=== PATIENT | male | born 1985 | race Two or more races ===

== ENCOUNTER 2020-03-31 05:32 | Day surgery (SDC) | payer OTHER ==
[~2020-03-31] VITALS: Ht 180.3 cm; Wt 73.5 kg
[2020-03-31] VITALS (10 sets, daily range): BP systolic 108–122; BP diastolic 57–74
[2020-03-31] MEDS ORDERED: celeBREX 200mg Cap **SURGERY PATIENTS ONLY ORAL ONE (06:00)
[2020-03-31] MEDS ORDERED: oxyCONTIN 10mg tab ORAL ONE (06:00)
[2020-03-31] MEDS ORDERED: ceFAZolin 1gm IVPB IVPB ONE ×2 (06:00)
[2020-03-31] MEDS ORDERED: EPINEPHrine 1mg/1ml Amp ONE (06:28)
[2020-03-31] MEDS ORDERED: Bupivacaine 0.5% Inj 30 ml vial INJ ONE (06:28)
[2020-03-31] MEDS ORDERED: Ropivacaine 5mg/ml Vial 20ml INJ ONE ×2 (06:28→06:56)
[2020-03-31] MEDS ORDERED: Lidocaine 1% MPF 10mg/ml 5ml ONE (06:54)
[2020-03-31] MEDS ORDERED: Midazolam 2mg/2ml Inj ONE (06:58)
[2020-03-31] MEDS ORDERED: fentaNYL 100 mcg/2 mL IV ONE (06:58)
--- NOTE | 2020-03-31 07:07 | Pre-Procedure Note/Attestation ---
Pre-Procedure Note/Attestation Complete Prior to Procedure Planned Procedure: right Procedure Narrative: rt shoulder scope zack walton Indications for Procedure Pre-Operative Diagnosis: rt shoulder impingement Attestation I attest that I discussed the nature of the procedure; its benefits; risks and complications; and alternatives (and the risks and benefits of such alternatives), prior to the procedure, with the patient (or the patient's legal account manager sales representative). I attest that, if there was a reasonable possibility of needing a blood transfusion, the patient (or the patient's legal account manager sales representative) was given the [facility] standardized written summary, pursuant to the Mandeep Dunia Blood Safety Act ([place] Health and Safety Code # 1645, as amended). I attest that I re-evaluated the patient just prior to the surgery and that there has been no change in the patient's H&P, except as documented below:none Matt Geiger MD Mar 31, 2020 07:06
[2020-03-31] MEDS ORDERED: HYDROmorphone 1mg/ml Carpuject SUBQ PRN (07:15)
[2020-03-31] MEDS ORDERED: Tylenol #3 tab (300mg/30mg) ORAL PRN (07:15)
[2020-03-31] MEDS ORDERED: HYDROcodone/Acetamin 5/325 tab ORAL PRN (07:15)
[2020-03-31] MEDS ORDERED: LR 1000ml ONE (07:30)
[2020-03-31] MEDS ORDERED: NS Irrig 4000ml IRRIG ONE (07:30)
--- NOTE | 2020-03-31 08:09 | Anethesia Preoperative Eval ---
Anesthesia Pre-op PMH/ROS General Date of Evaluation: Mar 31, 2020 Time of Evaluation: 07:12 Anesthesiologist: Shira ASA Score: ASA 1 Mallampati Score Class I : Soft palate, uvula, fauces, pillars visible Class II: Soft palate, uvula, fauces visible Class III: Soft palate, base of uvula visible Class IV: Only hard plate visible Mallampati Classification: Class II Surgeon: Navarro Diagnosis: R shoulder pain Surgical Procedure: R shoulder scope Anesthesia History: none Family History: no anesthesia problems Allergies: Coded Allergies: No Known Allergies (Unverified , 03/31/20) Medications: see eMAR Patient NPO?: Yes Past Medical History Cardiovascular: Denies: HTN, CAD, HI, valve dz, arrhythmia, other Pulmonary: Denies: asthma, COPD, VIRGEN, other Gastrointestinal/Genitourinary: Reports: GERD - mild; Denies: CRI, ESRD, other Neurologic/Psychiatric: Denies: dementia, CVA, depression/anxiety, TIA, other Endocrine: Denies: DM, hypothyroidism, steroids, other HEENT: Denies: cataract (L), cataract (R), glaucoma, [place] (L), [place] (R), other Hematology/Immune: Denies: anemia, DVT, bleeding disorder, other Musculoskeletal/Integumentary: Denies: OA, RA, DJD, DDD, edema, other PMH Narrative: as above PSxH Narrative: Removal of bladder tumor Anesthesia Pre-op Phys. Exam Physician Exam Last Vital Signs Date Time Temp Pulse Resp B/P (MAP) Pulse Ox O2 Delivery O2 Flow Rate FiO2 03/31/20 06:04 Room Air 03/31/20 06:00 97.6 51 18 111/70 98 Constitutional: NAD Neurologic: CN 2-12 intact Cardiovascular: RRR, no M/R/G Respiratory: CTA Gastrointestinal: S/NT/ND Airway Exam Mallampati Score: Class II MO: full Neck: flexible ROM: full Teeth: intact Dentures: no upper, no lower Anesthesia Pre-op A/P Labs see chart Studies Pre-op Studies: EKG - NSR Risk Assessment & Plan Assessment: ASA 1 Plan: GA with LMA ponv prevention, brachial plexus block for postop pain control Status Change Before Surgery: No Pre-Antibiotics Drug: ANcef 2gr Given Within 1 Hr of Incision: Yes Time Given: 07:52 Aneudy Silva MD Mar 31, 2020 08:09
[2020-03-31] MEDS ORDERED: DiphenhydrAMINE 50mg/ml Inj IVP PRN (08:15)
[2020-03-31] MEDS ORDERED: Metoclopramide 10mg/2ml Inj IVP PRN (08:15)
[2020-03-31] MEDS ORDERED: Meperidine 25mg/0.5ml Inj (FOR RIGORS ONLY) IV PRN (08:15)
[2020-03-31] MEDS ORDERED: LR 1000ml 1,000 ML IVLG SCH (08:15)
[2020-03-31] MEDS ORDERED: Ketorolac 30mg Inj IV PRN (08:15)
[2020-03-31] MEDS ORDERED: Ketorolac 30mg Inj ONE (08:43)
[2020-03-31] MEDS ORDERED: ePHEDrine 50mg/ml Inj ONE (08:43)
[2020-03-31] MEDS ORDERED: Sodium Chloride 10ml vial INJ ONE (08:43)
--- NOTE | 2020-03-31 09:14 | Brief Operative Note ---
Immediate Post Operative Note Operative Note Chief Complaint: rt shoulder pain Pre-op Diagnosis: rt shoulder impingement Procedure: rt shoulder scope, sad, mini isabelle, rtc repair Post-op Diagnosis: same as pre-op Findings: consistent w/pre-op dx studies Surgeon: md louis [employer] Facility Housekeeper: ria schneider Anesthesiologist: md ramu Anesthesia: general Specimen: none Complications: none Condition: stable Fluids: ns Estimated Blood Loss: minimal Drains: none Implant(s) used?: Yes - biomet Matt Geiger MD Mar 31, 2020 09:14
--- NOTE | 2020-03-31 09:27 | Immediate Post-Op Evaluation ---
Immediate Post-Op Evalulation Immediate Post-Op Evalulation Procedure: R shoulder arthroscopy, subacromion decompression RC repair Date of Evaluation: Mar 31, 2020 Time of Evaluation: 09:26 IV Fluids: 800 Blood Products: none Estimated Blood Loss: min Urinary Output: none Blood Pressure Systolic: 113 Blood Pressure Diastolic: 72 Pulse Rate: 75 Respiratory Rate: 20 O2 Sat by Pulse Oximetry: 99 Temperature (Fahrenheit): 97.6 Pain Score (1-10): 1 Nausea: No Vomiting: No Complications none Patient Status: awake, patent, none Hydration Status: adequate Aneudy Silva MD Mar 31, 2020 09:27
--- NOTE | 2020-03-31 10:17 | 48 Hour Post Anesthesia Eval ---
Post Anesthesia Evaluation Procedure: R shoulder arthroscopy, subacromion decompression RC repair Date of Evaluation: Mar 31, 2020 Time of Evaluation: 10:16 Blood Pressure Systolic: 114 0: 56 Pulse Rate: 64 Respiratory Rate: 18 Temperature (Fahrenheit): 97.8 O2 Sat by Pulse Oximetry: 98 Airway: patent Nausea: No Vomiting: No Pain Intensity: 1 Hydration Status: adequate Cardiopulmonary Status: stable Mental Status/LOC: patient returned to baseline Follow-up Care/Observations: n/a Post-Anesthesia Complications: none Follow-up care needed: ready to discharge Aneudy Silva MD Mar 31, 2020 10:17
[2020-03-31] MEDS ORDERED: D5 1/2NS 1,000 ML IV SCH (12:00)
--- NOTE | 2020-03-31 16:30 | Operative Note - Dictated ---
DATE OF OPERATION: 03/31/2020 PREOPERATIVE DIAGNOSIS: Right shoulder impingement syndrome. POSTOPERATIVE DIAGNOSES: 1. Right shoulder anterior and superior labral fraying without detachment from glenoid. 2. Right shoulder subacromial impingement and bursitis. 3. Right shoulder traumatic bursal-sided rotator cuff tear measuring 1.5 cm with intact articular-sided fibers. PROCEDURES: 1. Right shoulder arthroscopy and extensive intra-articular shaving. 2. Right shoulder debridement of the superior and anterior labrum. 3. Right shoulder subacromial bursoscopy, bursectomy, and subacromial decompression. 4. Right shoulder arthroscopic bursal-sided rotator cuff repair using two Biomet 2.9 mm JuggerKnot anchors. 5. Microfracture of the greater tuberosity lateral to the repair to provide multipotential cells for regrowth. SURGEON: Matt Geiger MD [employer] PRESS OPERATOR: Betsy Pisano PA-C Cargo Bracer was present during the actual operative portion of the case and was important and essential part of the operation. During the operation, the teaching assistant held and operated the arthroscopic camera for visualization, assisted by manipulating the arm to help with visualization, and helped with essential parts of the repair process as necessary such as operating surgical instruments under surgeon supervision, suture management, and wound closures. ANESTHESIOLOGIST: Aneudy Silva MD ANESTHESIA: General LMA anesthesia combined with interscalene block. ESTIMATED BLOOD LOSS: Minimal. COMPLICATIONS: None. SURGICAL INDICATION: The patient is a 34-year-old male, who sustained the above injury to his shoulder. The patient was treated non-operative initially, but this did not alleviate the patients symptoms. Therefore, after discussing all non-surgical and surgical options, and discussing all foreseeable risk and benefits of surgery, the patient opted for surgical treatment as described above. PATIENT POSITIONING: The patient was brought to the operating room table and was placed on the operating room table. All pressure points were well padded. Time-out was performed and preop antibiotics were given. General anesthesia was induced and the patient was then placed in the lateral decubitus position. All pressure points were well padded again and an axillary roll was placed. The patient's shoulder was then prepped and draped in the usual sterile fashion. Time-out was performed and the appropriate preoperative antibiotic was given by the anesthesiologist. EXAMINATION OF SHOULDER UNDER ANESTHESIA: The shoulder was examined under anesthesia with all muscles well relaxed. The shoulder was forward flexed, abducted, and was placed through full range of external and internal rotation. The anterior, posterior, and inferior stability of the shoulder was checked. The exam revealed no evidence of adhesive capsulitis and no evidence of instability. PORTAL PLACEMENT: The posterior portal was established 2 cm inferior and 1 cm medial to the edge of the posterior acromion. A 1 cm skin incision was made using an eleven blade and using the blunt obturator, the cannula was gently placed through the capsule. The mid-glenoid portal was established just lateral to the coracoid process under direct visualization. Direction of the cannula was first established using a spinal needle, and subsequently, the cannula was placed through the capsule with a blunt obturator. The directional of cannula was first established using a spinal needle, and subsequently, the cannula was placed through the capsule with a blunt obturator. DIAGNOSTIC ARTHROSCOPY: The biceps tendon was probed and pulled through the joint for visualization. It appeared normal. The biceps anchor was palpated with a probe and was visualized. There was some fraying of the superior and anterior labrum, but the biceps tendon and the biceps anchor was intact and attached. The posterior labrum and axillary recess was visualized. This was normal and there was no evidence of loose cartilage or fragments in this area. The glenoid articular surface was visualized and it appeared normal. The articular surface of the rotator cuff was visualized and probed next. There was no evidence of articular-sided rotator cuff tear extending from the supraspinatus back to the posterior cuff. The humeral head articular surface was then visualized. There was no evidence of articular cartilage damage. Next, the anterior labrum, middle glenohumeral ligament, subscapularis tendon, and the anteroinferior glenohumeral ligament were evaluated. There was some anterior labral fraying of the middle glenohumeral ligament, subscapularis, and anteroinferior glenohumeral ligaments were all intact. At this point, the scope was moved to the mid-glenoid portal and the posterior structures including the posterior labrum, posterior capsule, and posterior cuff were visualized. These structures were completely normal. The subscapularis recess was devoid of any loose bodies and the anterior capsule was well attached to the humeral neck. The middle and anteroinferior glenohumeral ligament was visualized. These structures were completely normal. OPERATIVE DEBRIDEMENTS AND REPAIR: Care was given to all partial-thickness tears and frayed structures in the shoulder joint. The frayed rotator cuff and labrum was debrided using a shaver initially through the anterior portal and subsequently through the posterior portal to complete the debridement. This allowed for smooth debridement of all affected structures and all loose fragments were removed. DIAGNOSTIC BURSOSCOPY AND SUBACROMIAL DECOMPRESSION: The subacromial bursa was entered from the posterior portal. The anterior portal was established under the CA ligament using a switching stick. Subacromial arthroscopy was initiated. There was extensive bursitis and thickened and inflamed bursa tissue present. The CA ligament appeared to be scuffed and frayed. The shaver was placed through the anterior cannula and debridement of the hypertrophic bursa tissue was accomplished. Once visualization was adequate, a lateral portal was established using a blunt trocar in the mid portion of the acromion bone in the anterior-posterior direction and approximately 2 cm lateral to the lateral edge of the acromion. Using combination of shaver and electrocautery, the CA ligament was released from the undersurface of the acromion and a complete bursectomy was accomplished. At this point, a subacromial decompression was performed using a mable initially taking off 5-8 mm of the anterolateral edge of the acromion from the lateral portal and viewing from the posterior portal. Then the lateral border of the undersurface of the acromion was decompressed to the same depth as the anterolateral edge. A posterior trough was then created in the acromion in line with the posterior edge of the clavicle. At this point, the scope was placed in the lateral portal and the subacromial decompression was performed from the posterior portal decompressing the undersurface of the acromion to depth of 5-8 mm. The decompression was performed anterior to the previously marked trough all the way medially to the level of the AC joint. At all times, care was given not to take off too much bone in order to avoid risk of fracture of the acromion. An excellent subacromial decompression was performed in this fashion. At this point, the bursal side of the rotator cuff was examined. All the bursa over the rotator cuff was removed and the rotator cuff was examined with a probe. The arm was placed into external rotation, neutral, and then internal rotation and there was evidence of a bursal-sided rotator cuff tear measuring 1.5 to 2 cm. The articular side was intact, however, this was a complete tear of the bursal side and the bursal-sided tear was unstable and was frayed. The scope was then placed in the posterior portal and the subacromial decompression was rechecked to assure there was no area of bone spur that would be still impinging onto the rotator cuff. ARTHROSCOPIC ROTATOR CUFF REPAIR: The scope was placed in the lateral portal and the rotator cuff was visualized. The rotator cuff revealed a bursal-sided, crescent-shaped, frayed rotator cuff tear that was on the bursal side only. The rotator cuff footprint adjacent to the articular cartilage of the humeral head was identified. This area was debrided initially using kate and subsequently using mable to provide adequate bleeding bony surface to accept the rotator cuff tendon. Attention was given to repair the rotator cuff with as little tension as possible. The [id number] sutures reduced the tear size and changed the configuration to a tear that was amendable for [id number] repair using suture anchors. At this point, an arthroscopic punch was used to create holes for suture anchor placement at the medial edge of the footprint through separate stab wound incisions and an arthroscopic tap was used to prepare the holes. Two Biomet 2.9 mm JuggerKnot anchors double-loaded with two #2 non-absorbable strong sutures were placed in previously prepared holes. Using standard arthroscopic suture passing instruments, the sutures were passed through the edge of rotator cuff with minimal trauma to the cuff tissue. Care was given to obtain large enough bites of the rotator cuff for the sutures to hold well. Once the sutures were passed through the cuff, the repair was secured onto the rotator cuff footprint using SMC sliding knots followed by 3 alternating-post half hitches. This allowed tension-free repair of the rotator cuff with excellent stability and watertight closure. The cuff repair security was assured by palpating the repair with a probe. Once the security was checked, multiple holes were punched on the lateral aspect of the greater tuberosity to break the subchondral bone and bone marrow cells to provide a good bleeding surface and to provide progenitor cells for repair of the cuff. CONDITION AT DISCHARGE FROM OPERATING ROOM: The skin was re-approximated and sterile dressing and sling were applied. All lap counts and instrument counts were correct. The patient tolerated the procedure well without complications and was taken to the recovery room in stable conditions. Matt Geiger M.D. DR: PAUL JOB#: [id number] CC:
== END 2020-03-31 11:05 | disposition home or self-care (01) ==
LOC: SUR 05:32
DX: M75.41 Impingement syndrome of right shoulder (principal); M71.9 Bursopathy, unspecified; M75.111 Incomplete rotator cuff tear or rupture of right shoulder, not specified as traumatic; K21.9 Gastro-esophageal reflux disease without esophagitis; S43.431A Superior glenoid labrum lesion of right shoulder, initial encounter; X58.XXXA Exposure to other specified factors, initial encounter; Y92.9 Unspecified place or not applicable
CPT/HCPCS: 29823; 29826; 29827; 29999; 94003; C1713; J0690; J1885; J2250; J2405; J2704; J2795; J3010; J7120; U0002; 94150